=== PATIENT | male | born 1970 | race Hispanic/Latino ===

== ENCOUNTER → 2017-05-27 | Day surgery (SDC) | payer OTHER ==
[~2017-05-27] MED LIST: ASPIR 8181 MG PO; BUPIVACAINE HCL 0.5% 10ML MPF VIAL INJ ONE; FENTANYL CITRATE/PF 100MCG/2 ML INJ ONE; IOPAMIDOL 200 MG/ML 20 ML VIAL IT ONE; LIDOCAINE HCL 1% LOCAL INJ 20 ML VIAL ONE; LIDOCAINE HCL 2% LOCAL INJ 5 ML SDV VIAL INJ ONE; LISINOPRIL2.5 MG PO; MELOXICAM7.5 MG PO; MIDAZOLAM HCL 2 MG/2 ML VIAL ONE; PROPOFOL IV EMULSION 10 MG/ML 20 ML VIAL ONE; TRIAMCINOLONE ACET 40 MG/ML VIAL ONE; ULTRAM 50MG50 MG PO
--- NOTE | 2017-05-27 09:54 | Operative Report ---
DATE OF PROCEDURE: May 27, 2017 PREOPERATIVE DIAGNOSIS: Osteoarthritis, right hip. POSTOPERATIVE DIAGNOSIS: Osteoarthritis, right hip. PROCEDURE: Right hip fluoroscopic-guided corticosteroid injection. CLOUD SECURITY ARCHITECT: Graeme Mohamud PA-C The patient was brought to the operating room for induction of anesthesia. Throughout this case, my PA's assistance was necessary for retraction of soft tissue and positioning of the extremity. This allows for efficient and technically successful execution of the operation and is considered medically necessary. INDICATIONS: The patient is a 46-year-old gentleman who has advanced arthritis of his right hip. He also is obese and has back pain. The findings and options have been discussed. The ultimate need for a hip replacement at some point in his life has been explained. Because of his age, weight, and concomitant back pain, we plan on a fluoroscopic-guided corticosteroid injection. The risks and benefits were explained. He stated he understood and wished to proceed. DESCRIPTION OF PROCEDURE: The patient was brought to the operating room. He was given a MAC anesthetic. His right hip was prepped and draped in a sterile manner. A preoperative time out was performed. A C-arm image intensifier was brought in. A spinal needle was placed down into the hip joint. A small amount of radiopaque dye was injected to confirm intra-articular placement. Once this was confirmed, a mixture of 0.5% Marcaine and 40 mg of Depo-Medrol were injected into the joint. The needle was retrieved and a Band-Aid was applied. He was transported to the recovery room in stable condition. Job#: [id number]
== END | disposition home or self-care (01) ==
LOC: OR 05:10
PROVIDERS: ATTEND Specialist
DX: M16.11 Unilateral primary osteoarthritis, right hip (principal); M47.816 Spondylosis without myelopathy or radiculopathy, lumbar region; E66.01 Morbid (severe) obesity due to excess calories; I10 Essential (primary) hypertension; G47.33 Obstructive sleep apnea (adult) (pediatric); Z01.810 Encounter for preprocedural cardiovascular examination; Z79.82 Long term (current) use of aspirin; Z68.37 Body mass index [BMI] 37.0-37.9, adult
CPT/HCPCS: 20610; 77003; 93005; J2001; J2250; J3301; Q9966

== ENCOUNTER 2018-03-17 05:53 | Inpatient (IN) | payer OTHER ==
[2018-03-14 11:54] LABS: BASOPHILS # (AUTO) 0.1 (0.0-0.1); EOSINOPHILS # (AUTO) 0.2 (0.0-0.4); HEMOGLOBIN 14.8 g/dL (14.0-18.0); LYMPHOCYTES # (AUTO) 1.6 (1.0-3.2); LYMPHOCYTES % 23.6 % (18.0-39.1); MEAN CORPUSCULAR HEMOGLOBIN 30.8 pg (28-32); MEAN CORPUSCULAR HGB CONC 35.2 g/dL (31-35); MEAN CORPUSCULAR VOLUME 87.3 fL (81-99); MONOCYTES # (AUTO) 0.5 (0.2-0.8); MONOCYTES % 7.2 % (4.4-11.3); NEUTROPHILS # (AUTO) 4.5 (2.1-6.9); NEUTROPHILS % 64.8 % (38.7-80.0); PLATELET COUNT 248 x10e3/uL (140-360); RED BLOOD COUNT 4.81 x10e6/uL (4.3-5.7); RED CELL DISTRIBUTION WIDTH 11.9 % (11.7-14.4)
[~2018-03-17] VITALS: Ht 177.8 cm; Wt 116.6 kg
[2018-03-17] MEDS: SODIUM CHLORIDE 0.9% 1000ML 1,000 ML IV SCH ×2 (05:00→11:05)
[~2018-03-17 05:53] MED LIST changes: -BUPIVACAINE HCL 0.5% 10ML MPF VIAL INJ ONE; -FENTANYL CITRATE/PF 100MCG/2 ML INJ ONE; -IOPAMIDOL 200 MG/ML 20 ML VIAL IT ONE; -LIDOCAINE HCL 1% LOCAL INJ 20 ML VIAL ONE; -LIDOCAINE HCL 2% LOCAL INJ 5 ML SDV VIAL INJ ONE; +METOPROLOL SUCC25 MG; -MIDAZOLAM HCL 2 MG/2 ML VIAL ONE; +NAPROXEN PO; +PARACETAMOL PO; -PROPOFOL IV EMULSION 10 MG/ML 20 ML VIAL ONE; -TRIAMCINOLONE ACET 40 MG/ML VIAL ONE
[2018-03-17] MEDS ORDERED: CELECOXIB 200 MG CAP ONE (06:27)
[2018-03-17] MEDS ORDERED: DEXAMETHASONE SOD PHOS 10 MG/1 ML VIAL ONE (06:28)
[2018-03-17] MEDS ORDERED: GABAPENTIN 300 MG CAP ONE (06:28)
[2018-03-17] MEDS ORDERED: CEFAZOLIN SOD 2 GM/D5W 50ML 50 ML IV ONE (06:28)
[2018-03-17] MEDS ORDERED: ROPIVACAINE 246.25 MG, EPINEPHRINE HCL 1:1000 1ML 0.5 MG, CLONIDINE HCL 0.08 MG, KETORO... INJ ONE ×5 (06:30)
--- NOTE | 2018-03-17 07:10 | NUR ---
SPIRITUAL CARE - Pre-Surgery Assessment: Pt in bed. Pt's at bedside. Pt reported supportive attention from family and friends. Intervention: I provided pastoral presence, hospitality, and sympathetic listening. I acquainted pt with availability of hand spring repairer while hospitalized. Outcome: Pt expressed appreciation for visit. No need for follow up indicated at this time. DERRICK [facility] Spiritual Care Department O: [phone] Pager: [phone] ([phone] number calling from)
[2018-03-17] MEDS ORDERED: BACITRACIN 50,000 UNIT VIAL ONE (07:37)
[2018-03-17] MEDS ORDERED: TRANEXAMIC ACID 1,000 MG/10 ML ML ONE (07:37)
[2018-03-17] MEDS ORDERED: VANCOMYCIN HCL 500 MG ONE (07:38)
[2018-03-17] MEDS ORDERED: SODIUM CHLORIDE 0.9% 500ML 500 ML ONE (07:49)
[2018-03-17] MEDS ORDERED: BUPIVACAINE 7.5MG/ML /DEXTROSE 82.5MG/ML 2 ML AMP INJ ONE (08:08)
[2018-03-17] MEDS ORDERED: ONDANSETRON HCL INJ 2MG/ML 2ML 2 MG/ML VIAL IV PRN (10:00)
[2018-03-17] MEDS ORDERED: DIPHENHYDRAMINE HCL INJ 50 MG/ML VIAL IM/IV PRN (10:00)
[2018-03-17] MEDS ORDERED: DOCUSATE SODIUM 100 MG CAP PO PRN (10:00)
[2018-03-17] MEDS ORDERED: PROMETHAZINE HCL (IM) 25 MG/ML VIAL IM PRN (10:00)
[2018-03-17] MEDS ORDERED: ACETAMINOPHEN 650 MG SUPP PR PRN (10:00)
[2018-03-17] MEDS ORDERED: KETOROLAC TROMETHAMINE 30 MG/ML VIAL IV PRN (10:00)
[2018-03-17] MEDS ORDERED: HYDROCODONE/APAP 5MG-325MG TAB PO PRN (10:00)
[2018-03-17 10:45] VITALS: BP 112/57
--- NOTE | 2018-03-17 10:45 | NUR ---
Recvd patient in bed from PACU, AAOx3, Not in any distress, call light in reach, right hip pressure dressing is intact, keep monitoring
--- NOTE | 2018-03-17 11:13 | Diagnostic Imaging Report ---
Exam: Pelvis, single frontal view History: Postsurgical Comparison: None. Findings: See impression Impression: Status post total right hip arthroplasty with intact and appropriately positioned acetabular cup and femoral stem components. No periprosthetic displaced fractures. Expected overlying surgical dallas and subcutaneous emphysema. Signed by: Dr. Josué Deras M.D. on 03/17/2018 11:09 AM
[2018-03-17 11:30] VITALS: BP 112/57
[2018-03-17] MEDS: ACETAMINOPHEN 1000 MG/100 ML IV SCH (12:20)
--- NOTE | 2018-03-17 14:28 | Operative Report ---
DATE OF PROCEDURE: March 17, 2018 CABLE TESTER: Graeme Mohamud PA-C The patient was brought to the operating room for induction of anesthesia. Throughout this case, my PA's assistance was necessary for retraction of soft tissue and positioning of the extremity. This allows for efficient and technically successful execution of the operation and is considered medically necessary. PREOPERATIVE DIAGNOSIS: Osteoarthritis, right hip. POSTOPERATIVE DIAGNOSIS: Osteoarthritis, right hip. PROCEDURE: Right total hip arthroplasty. INDICATIONS: The patient is a heavy-set, 47-year-old gentleman who has advanced osteoarthritis of his right hip. He has failed conservative management and would like to proceed with a right total hip replacement. The risks and benefits including discussion of the longevity of a right hip replacement have been explained. He states he understands and wishes to proceed. DESCRIPTION OF PROCEDURE: The patient was brought into the operating room and given a spinal anesthetic. He received prophylactic antibiotics and tranexamic acid in the holding area. He was positioned in the left lateral decubitus position. Some added time and personnel were necessary due to the patient's BMI of 37. His right hip was prepped and draped in a sterile manner. A preoperative time out was performed. A posterior approach was made to the right hip. The patient's age, muscle density and obesity made his exposure little bit more challenging than normal. Hemostasis was obtained with electrocautery. A deep self-retaining Charnley retractor was placed. Care was taken to avoid injury to the sciatic nerve. The posterior capsule was exposed and carefully released. Additional hemostasis was obtained with electrocautery. The hip was dislocated, and an oscillating saw was used to resect the femoral head. Complete loss of articular cartilage in the superior aspect of the femoral head was noted. Soft-tissue releases were performed to provide positioning of retractors and adequate visualization of the socket. Labral remnants were excised. The true floor of the acetabulum was established with a 56-mm reamer. The socket was sequentially reamed up to 57 mm. This accomplished bleeding hemispherical cancellous bone. The hip was thoroughly irrigated on several occasions during this portion of the case with a shower-tip pulsatile lavage. A mixture of polymyxin and vancomycin spray was also used. A Bailey Biomet 58 mm outer diameter OsseoTi socket was then impacted into place. Excellent fixation was felt to be obtained. Fixation was augmented with a single 20-mm cancellous screw placed into the ilium. A highly cross-link polyethylene liner with a 36 mm inner diameter was then seated into place. Care was taken to make sure that there was no evidence of soft-tissue interposition. A portion of a 100 mL premixed pericapsular ULYSSES injection was placed into the surrounding soft tissue. The socket was packed with moistly soaked lap sponge, and attention was directed towards the proximal femur. A box cutting osteotome and taper pin reamer were used to establish entry to the femoral canal. The Bailey Biomet Taperloc broaches were trialed. A size 16 stem with a standard offset provided appropriate canal fill and rotational stability. A trial reduction with a standard 36-mm head provided excellent stability and episcopalian of limb length. The trial implants were removed. The hip was further irrigated with a shower-tip pulsatile lavage. The remainder of the pericapsular injection was placed. The Taperloc broach was then seated, and a standard 36-mm ceramic head was seated onto the stem. The stem had been cleaned and dried thoroughly before seating the head. Final reduction was obtained. The posterior capsule was repaired with #2 Ethibond. The short external rotators were far too contracted to be repaired. The proximal tensor fascia and gluteal fascia were closed with #2 Ethibond. The skin was closed with subcuticular Vicryl and dallas. He was placed into a sterile Aquacel bandage. He was returned to the supine position and then transported to the recovery room in stable condition. Estimated blood loss was 100 mL. At the end of the procedure, all needle and sponge counts were correct. Job#: [id number]
[2018-03-17 16:05] VITALS: BP 114/63
[2018-03-17] MEDS ORDERED: CELECOXIB 100 MG CAP PO SCH (17:00)
[2018-03-17] MEDS: CELECOXIB 200 MG CAP PO SCH (17:03)
[2018-03-17] MEDS: ASPIRIN 325 MG TAB PO SCH (17:03)
[2018-03-17] MEDS: CEFAZOLIN SOD 1 GM/NS 50ML 50 ML IV SCH (17:03)
[2018-03-17] MEDS ORDERED: MIDAZOLAM HCL 2 MG/2 ML VIAL ONE (17:22)
[2018-03-17] MEDS ORDERED: FENTANYL CITRATE/PF 100MCG/2 ML INJ ONE (17:22)
[2018-03-17] MEDS ORDERED: PROPOFOL IV EMULSION 10 MG/ML 20 ML VIAL ONE (17:22)
[2018-03-17] MEDS ORDERED: PHENYLEPHRINE HCL 1% 10 MG/ML VIAL ONE (17:22)
--- NOTE | 2018-03-17 18:45 | NUR ---
patient resting in bed, Alert with no distress, right hip surgical site dressing is intact, call light in reach, family at bed side
[2018-03-17 20:00] VITALS: BP 114/63
[2018-03-17] MEDS: HYDROCODONE/APAP 7.5MG-325MG 1 EA TAB PO PRN ×2 (20:35→21:56)
--- NOTE | 2018-03-17 20:36 | NUR ---
PATIENT C/O PAIN TO THE RIGHT HIP WITH PAIN SCORE #8, MEDICATED WITH NORCO 1TAB ORDERED. ABDUCTOR PILLOW BETWEEN THE LEGS, DRESSING INTACT TO THE LEFT HIP AND PAIN INSTRUCTED TO CALL FOR ASSISTANCE UPON GETTING OUT OF THE BED.
[2018-03-17] MEDS ORDERED: ZOLPIDEM TARTRATE 5 MG TAB PO PRN (21:00)
[2018-03-18] VITALS: BP 106/57
[2018-03-18] MEDS: ACETAMINOPHEN 1000 MG/100 ML IV SCH ×2 (00:15→06:10)
--- NOTE | 2018-03-18 00:25 | NUR ---
PATIENT IS ASLEEP, HE'S EASY TO AROUSE, NO RESPIRATORY DISTRESS OBSERVED. DRESSING REMAINS INTACT TO THE RIGHT HIP WITHOUT BLEEDING OR DRAINAGE, HE C/O MILD PAIN TO THE RIGHT HIP WITH PAIN SCORE #2, HE WAS MEDICATED WITH IV TYLENOL SCHEDULED FOR PAIN. CALL LIGHT WITHIN EASY REACH, INSTRUCTED TO CALL FOR ASSISTANCE UPON GETTING OUT OF THE BED.
[2018-03-18] MEDS: CEFAZOLIN SOD 1 GM/NS 50ML 50 ML IV SCH ×2 (00:40→08:44)
[2018-03-18 04:00] VITALS: BP 118/73
--- NOTE | 2018-03-18 04:34 | NUR ---
PATIENT ASSISTED TO THE TOILET, HE WAS GIVEN SPECIFIC INSTRUCTION TO CALL FOR ASSISTANCE UPON COMPLETION SO THAT HE CAN BE ASSISTED TO THE BED. EMERGENCY CORD WITHIN EASY REACH, HIS IS IN THE REST ROOM WITH HIM.
[2018-03-18] MEDS: SODIUM CHLORIDE 0.9% 1000ML 1,000 ML IV SCH (05:00)
--- NOTE | 2018-03-18 05:00 | NUR ---
PATIENT ASSISTED FROM THE RESTROOM, HE AMBULATED IN THE ROOM AND HE'S NOW BACK IN THE BED. HE C/O PAIN TO THE RIGHT HIP, MEDICATED WITH TORADOL ORDERED. CALL LIGHT WITHIN EASY REACH, INSTRUCTED TO CALL FOR ASSISTANCE NEEDED.
[2018-03-18 06:02] LABS: HEMATOCRIT 36.1 % (38.2-49.6); HEMOGLOBIN 12.3 g/dL (14.0-18.0)
--- NOTE | 2018-03-18 08:20 | NUR ---
Patient resting in bed, tolerated with break fast, right hip dressing site is intact, no hematoma or bleeding noted, call light in reach, at bed side
[2018-03-18 08:30] VITALS: BP 115/66
[2018-03-18] MEDS: ASPIRIN 325 MG TAB PO SCH (08:44)
[2018-03-18] MEDS: CELECOXIB 200 MG CAP PO SCH (08:44)
[2018-03-18 08:47] VITALS: BP 115/66
[2018-03-18] MEDS ORDERED: ACETAMINOPHEN 1000 MG/100 ML IV PRN (10:00)
[2018-03-18] MEDS ORDERED: LISINOPRIL 2.5 MG TAB PO SCH (11:00)
[2018-03-18] MEDS ORDERED: METOPROLOL SUCCINATE 25 MG TAB XL PO SCH (11:00)
[2018-03-18] MEDS ORDERED: ASPIRIN325 MG PO (11:37)
[2018-03-18 12:05] VITALS: BP 115/69
--- NOTE | 2018-03-18 12:28 | NUR ---
PATIENT DME AND HOME HEALTH COMPANIES PRE-ARRANGED BY DR. MARIE'S OFFICE. PATIENT WITH HOME HEALTH AND DME CONTACT INFORMATION. PATIENT AWARE TO CALL CM IF ANY PROBLEMS OCCUR WITHIN 3 DAYS POST- DISCHARGE. HOME HEALTH EXPLAINED IN DEPTH WITH SERVICES PROVIDED. PATIENT VERBALLY UNDERSTOOD. THE FOLLOWING HOME HEALTH AND DME COMPANY VERIFIED PATIENT IS ON SERVICE WITH THEM: [facility] (P)[phone] (F) [phone] NOREEN WITH [facility] CONFIRMED PATIENT IS ON SERVICE AND THEY WILL BE OUT TO SEE PATIENT TOMORROW. THEY ARE AWARE PATIENT IS DISCHARGING TODAY. [employer]: (WALKER WITH WHEELS, 3-IN-1 COMMODE) (P) [phone] (F) [phone] PATIENT WITH WALKER AT BEDSIDE PROVIDED BY [employer]. CONFIRMED DELIVERY BY MARCIO WITH [employer].
[2018-03-18] MEDS ORDERED: NORCO 7.5-3251 EACH PO (14:31)
--- NOTE | 2018-03-18 14:45 | NUR ---
Visit made by the Spiritual Care Department Pastoral Visitor, Luz Hidalgo. PV provided pastoral presence, prayer, hospitality, and supportive listening. Pastoral Visitor informed pt/family of the scope of Feed In Worker Services and availability. DERRICK [facility] [employer] Spiritual Care Department O: [phone] Pager: [phone] ([phone] number calling from)
--- NOTE | 2018-03-18 15:30 | NUR ---
patient discharged home, right hip dressing is intact, prescription given, IV canula removed with tip intact, no ss infiltration noted, patient aware about f/up appointments, at bed side, transported via to [facility]
== END 2018-03-18 15:20 | disposition home health service (06) | DRG 470 ==
LOC: OR 05:53 → PACU V 09:57 → MED/SURG 10:44
PROVIDERS: ADMIT Specialist; ATTEND Specialist
PROC: 0SR904Z Replacement of Right Hip Joint with Ceramic on Polyethylene Synthetic Substitute, Open Approach (ICD-10-PCS; principal; 2018-03-17 08:00)
DX: M16.11 Unilateral primary osteoarthritis, right hip (principal); I10 Essential (primary) hypertension; E66.01 Morbid (severe) obesity due to excess calories; Z68.36 Body mass index [BMI] 36.0-36.9, adult; Z82.49 Family history of ischemic heart disease and other diseases of the circulatory system; Z79.82 Long term (current) use of aspirin; Z01.812 Encounter for preprocedural laboratory examination
CPT/HCPCS: 36415; 72170; 82948; 85014; 85018; 85025; 86850; 86900; 86920; 96367; 96376; C1713; J0171; J0690; J1100; J1885; J2250; J2370; J2795; J3370; J7030; J7040

== ENCOUNTER → 2018-04-23 | Outpatient (CLI) | payer OTHER ==
[~2018-04-23] MED LIST changes: +ASPIRIN325 MG PO; +NORCO 7.5-3251 EACH PO
--- NOTE | 2018-04-23 16:33 | Diagnostic Imaging Report ---
EXAM: CHEST 2 VIEWS DATE: 04/23/2018 2:15 PM INDICATION: Chest pain COMPARISON: None FINDINGS: Lines and tubes: None Heart size normal. No focal pulmonary opacity, pleural effusion or pneumothorax. Upper abdomen unremarkable. No acute bony abnormality. IMPRESSION: No evidence for acute disease. Signed by: Dr. Scott Jay M.D. on 04/23/2018 4:29 PM
== END ==
LOC: RAD 14:05
PROVIDERS: ATTEND Internal Medicine
DX: R06.02 Shortness of breath (principal)
CPT/HCPCS: 71046